=== PATIENT | female | born 1940 | race Two or more races ===

== ENCOUNTER 2018-08-24 09:49 | Emergency (ER) | payer MEDICARE ==
[~2018-08-24] VITALS: Ht 154.9 cm; Wt 71.2 kg
[~2018-08-24 09:49] MED LIST: ALBIPROI INH; ALBU90I INH; ALBU90OI INH; ALBU90OI61 INH; ALLO100 PO; ASPI325; ASPI81CH PO; ASPI81EC PO; ATOR10; ATOR20 PO; AZIT250 PO; AZIT500 PO; Bactrim Ds Tab1 EACH PO; CALC.25 PO; CEFU250 PO; CEPH500 PO; CIPR250 PO; CLIN150 PO; CONEST.9; CONEST.9 PO; CRUTCH3 USE; Cipro500 MG PO; DOXY100 PO; DULO60 PO; ENABLEX PO; ESTRTP PV; FURO40; FURO40 PO; Flonase 0.05% N16 GM; GLIM2; GLIM2 PO; GLIM4 PO; Glipizide ER2.5 MG; HYDACE5 PO; HYDGUAL120 PO; IBUP200; LIRA0.6P; MULT50L; Macrobid 100 M100 MG PO; Monodox100 MG PO; NEOPOLHCSU OT; Norco 5-325 Ta1 EACH PO; OMEP20ER; OMEP20ER PO; OMEP40CA12 PO; ONDA4 PO; PANT40; PARO20; PHENA100 PO; PHENA200 PO; POTA10T PO; POTCHL10ER; POTCHL10ER PO; PRED20 PO; Percocet 5-3251 EACH PO; Pyridium100 MG PO; Pyridium200 MG PO; RAMI5; RAMI5 PO; RANI150 PO; ROSI4; ROSI4 PO; SITA100T2 PO; SITA25T2 PO; SOLI5 PO; SULTRIDS PO; TRAM50; TRAM50 PO; VITAMIN B122500 MCG PO; Zofran Odt4 MG SL
[2018-08-24] MEDS ORDERED: TEST STRIPS1 EACH XX (12:16)
[2018-08-24] MEDS ORDERED: Keflex500 MG PO (12:16)
[2018-08-24] MEDS ORDERED: Bactrim Ds Tab1 EACH PO (12:16)
[2018-08-24] MEDS ORDERED: Norco 5-325 Ta1 EACH PO (12:16)
== END 2018-08-24 12:25 | disposition home or self-care (01) ==
LOC: ER 09:49
DX: L03.114 Cellulitis of left upper limb (principal); Z88.0 Allergy status to penicillin; Z88.8 Allergy status to other drugs, medicaments and biological substances; Z79.899 Other long term (current) drug therapy; Z79.82 Long term (current) use of aspirin; E11.22 Type 2 diabetes mellitus with diabetic chronic kidney disease; N18.9 Chronic kidney disease, unspecified; K21.9 Gastro-esophageal reflux disease without esophagitis
CPT/HCPCS: 99283

== ENCOUNTER 2018-08-28 10:19 | Emergency (ER) | payer MEDICARE ==
[~2018-08-28] VITALS: Ht 154.9 cm; Wt 71.2 kg
[~2018-08-28 10:19] MED LIST changes: +Keflex500 MG PO; +TEST STRIPS1 EACH XX
[2018-08-28 11:01] LABS: BASOPHILS ABSOLUTE AUTO 0.03 K/mm3 (0.00-0.23); BASOPHILS PERCENT AUTO 1 % (0-2); EOSINOPHILS ABSOLUTE AUTO 0.11 K/mm3 (0.00-0.68); EOSINOPHILS PERCENT AUTO 2 % (0-6); Hematocrit 40.4 % (33.0-51.0); Hemoglobin 12.8 g/dL (11.5-16.0); IMMATURE GRAN ABSOLUTE AUTO 0.01 K/mm3 (0.00-0.10); IMMATURE GRAN PERCENT AUTO 0 % (0-1); LYMPHOCYTES ABSOLUTE AUTO 1.66 K/mm3 (0.84-5.20); LYMPHOCYTES PERCENT AUTO 30 % (21-46); MONOCYTES ABSOLUTE AUTO 0.34 K/mm3 (0.16-1.47); MONOCYTES PERCENT AUTO 6 % (4-13); Mean Corpuscular HGB 30.1 pg (26.0-34.0); Mean Corpuscular HGB Conc 31.7 g/dL (31.5-36.5); Mean Corpuscular Volume 95 fL (80-100); Mean Platelet Volume 11.5 fL (9.1-12.4); NEUTROPHILS ABSOLUTE AUTO 3.41 K/mm3 (1.96-9.15); NEUTROPHILS PERCENT AUTO 61 % (41-73); Platelet Count 159 K/mm3 (150-400); RDW Coefficient Variation 13.2 % (11.7-14.2); RDW Standard Deviation 46.5 fL (35.1-46.3); Red Blood Cell Count 4.25 M/mm3 (3.80-5.20); White Blood Cell Count 5.56 K/mm3 (4.00-11.30)
[2018-08-28 11:18] LABS: Albumin, Blood 3.6 g/dL (3.4-5.0); Albumin/Globulin Ratio 0.8 (0.8-1.8); Bilirubin, Total 0.6 mg/dL (0.1-1.0); Calcium, Blood 9.5 mg/dL (8.5-10.1); Creatinine, Blood 1.63 mg/dL (0.40-1.00); Globulin, Blood 4.3 g/dL (2.2-4.0); Potassium, Blood 4.6 mmol/L (3.5-5.5); Total Protein, Blood 7.9 g/dL (6.4-8.2)
== END 2018-08-28 12:43 | disposition home or self-care (01) ==
LOC: ER 10:19
PROVIDERS: Physician Assistant
DX: L02.512 Cutaneous abscess of left hand (principal); Z88.0 Allergy status to penicillin; Z88.8 Allergy status to other drugs, medicaments and biological substances; Z79.899 Other long term (current) drug therapy; Z79.82 Long term (current) use of aspirin; E11.22 Type 2 diabetes mellitus with diabetic chronic kidney disease; N18.9 Chronic kidney disease, unspecified; K21.9 Gastro-esophageal reflux disease without esophagitis
CPT/HCPCS: 10060; 36415; 80053; 85025; 96365-59; 99283-25; J0690

== ENCOUNTER → 2018-12-25 | Outpatient (CLI) | payer MEDICARE | END | disposition home or self-care (01) | LOC: LAB EV 14:50 → LAB SHORT 14:50 | DX: R30.9 Painful micturition, unspecified (principal) | CPT/HCPCS: 87077; 87086; 87186 ==

== ENCOUNTER 2019-02-25 05:59 | Emergency (ER) | payer MEDICARE ==
[~2019-02-25] VITALS: Ht 154.9 cm; Wt 77.1 kg
[2019-02-25] MEDS ORDERED: TRAM50 PO (06:19)
[2019-02-25] MEDS ORDERED: RAMI5 PO (06:20)
[2019-02-25] MEDS ORDERED: PROBIOTIC ACID1 EAC2 PO (06:22)
[2019-02-25] MEDS ORDERED: CENTRUM ADULTS1 EACH PO (06:28)
[2019-02-25] MEDS ORDERED: VITAMIN D32000 UNI3 PO (06:28)
[2019-02-25] MEDS ORDERED: Prednisone20 MG PO (08:14)
[2019-02-25] MEDS ORDERED: GUAIFEN-CODEINE10 ML PO (08:14)
[2019-02-25] MEDS ORDERED: ALBU90OI INH (08:14)
== END 2019-02-25 08:30 | disposition home or self-care (01) ==
LOC: ER 05:59
DX: J06.9 Acute upper respiratory infection, unspecified (principal); E11.22 Type 2 diabetes mellitus with diabetic chronic kidney disease; N18.9 Chronic kidney disease, unspecified; K21.9 Gastro-esophageal reflux disease without esophagitis; Z88.6 Allergy status to analgesic agent; Z88.0 Allergy status to penicillin; Z79.899 Other long term (current) drug therapy
CPT/HCPCS: 71046; 94644; 99283-25; J1100

== ENCOUNTER → 2019-07-04 | Outpatient (CLI) | payer MEDICARE ==
[~2019-07-04] MED LIST changes: +CENTRUM ADULTS1 EACH PO; +GUAIFEN-CODEINE10 ML PO; +PROBIOTIC ACID1 EAC2 PO; +Prednisone20 MG PO; +VITAMIN D32000 UNI3 PO
== END | disposition home or self-care (01) ==
LOC: LAB EV 14:55 → LAB SHORT 14:55
DX: R30.9 Painful micturition, unspecified (principal)
CPT/HCPCS: 87086

== ENCOUNTER → 2019-07-23 | Outpatient (CLI) | payer MEDICARE | END | disposition home or self-care (01) | LOC: LAB SHORT 11:35 → LAB EV 11:35 | DX: N39.0 Urinary tract infection, site not specified (principal) | CPT/HCPCS: 87086 ==

== ENCOUNTER → 2021-07-20 | Outpatient (CLI) | payer MEDICARE ==
[2021-07-20 12:10] LABS: Source, Urine Clean Catch
[2021-07-20 13:22] LABS: Appearance, Urine Clear (Clear); Bilirubin, Urine Neg (Neg); Blood, Urine Neg (Neg); Color, Urine Yellow (P-Yellow); Glucose Qualitative, Urine 3+ (Neg); Ketones, Urine Neg (Neg); Leukocyte Esterase, Urine Neg (Neg); Nitrite, Urine Neg (Neg); Protein, Urine Neg (Neg); Specific Gravity, Urine 1.015 (1.003-1.022); Urobilinogen, Urine NORM (Normal)
[2021-07-20 15:28] LABS: Creatinine, Urine Random 79.2 mg/dL (27.00-270.00); Protein, Urine Random 12.3 mg/dL (0.0-11.9); Protein/Creat Ratio, Ur Random 0.2
== END ==
LOC: LAB SHORT 09:50 → LAB 09:50
PROVIDERS: Nurse Practitioner Family
DX: N18.32 Chronic kidney disease, stage 3b (principal)
CPT/HCPCS: 81003; 82570; 84156

== ENCOUNTER → 2022-04-14 | Outpatient (CLI) | payer MEDICARE ==
[2022-04-15 14:50] LABS: Creatinine, Urine Random 62.5 mg/dL (27.00-270.00)
[2022-04-15 14:53] LABS: Microalb/Creat Ratio UR, Rand 9.232 mg/g (0.000-30.000); Microalbumin, Random Urine 5.77 mg/L (0.000-20.000)
== END | disposition home or self-care (01) ==
LOC: LAB SHORT 07:52
PROVIDERS: Family Medicine
DX: E11.9 Type 2 diabetes mellitus without complications (principal)
CPT/HCPCS: 82043; 82570

== ENCOUNTER → 2022-06-14 | Outpatient (CLI) | payer MEDICARE | END | disposition home or self-care (01) | LOC: LAB SHORT 16:23 → LAB 16:23 | DX: N39.0 Urinary tract infection, site not specified (principal) | CPT/HCPCS: 87086 ==

== ENCOUNTER → 2023-01-10 | Outpatient (CLI) | payer MEDICARE | LOC: LAB SHORT 11:11 → LAB 11:11 | DX: E11.9 Type 2 diabetes mellitus without complications (principal) | CPT/HCPCS: 82043 ==

== ENCOUNTER → 2024-04-11 | Outpatient (CLI) | payer MEDICARE ==
[2024-04-11 16:37] LABS: BASOPHILS ABSOLUTE AUTO 0.06 K/mm3 (0.00-0.23); BASOPHILS PERCENT AUTO 0 % (0-2); EOSINOPHILS PERCENT AUTO 1 % (0-6); Hemoglobin 10.8 g/dL (11.5-16.0); IMMATURE GRAN ABSOLUTE AUTO 0.12 K/mm3 (0.00-0.10); IMMATURE GRAN PERCENT AUTO 1 % (0-1); LYMPHOCYTES ABSOLUTE AUTO 2.55 K/mm3 (0.84-5.20); LYMPHOCYTES PERCENT AUTO 19 % (21-46); MONOCYTES ABSOLUTE AUTO 0.89 K/mm3 (0.16-1.47); MONOCYTES PERCENT AUTO 7 % (4-13); Mean Corpuscular HGB 30.8 pg (26.0-34.0); Mean Corpuscular HGB Conc 31.8 g/dL (31.5-36.5); Mean Corpuscular Volume 97 fL (80-100); Mean Platelet Volume 9.9 fL (9.1-12.4); NEUTROPHILS ABSOLUTE AUTO 9.82 K/mm3 (1.96-9.15); NEUTROPHILS PERCENT AUTO 73 % (41-73); Platelet Count 540 K/mm3 (150-400); RDW Coefficient Variation 14.9 % (11.7-14.2); Red Blood Cell Count 3.51 M/mm3 (3.80-5.20); White Blood Cell Count 13.54 K/mm3 (4.00-11.30)
[2024-04-12 02:35] LABS: Percent Saturation 18.8 % (15.0-50.0)
== END ==
LOC: LAB SHORT 14:53 → LAB 14:53
PROVIDERS: Family Medicine
DX: D64.9 Anemia, unspecified (principal)
CPT/HCPCS: 82728; 83540; 83550; 85025

== ENCOUNTER 2024-10-03 12:09 | Day surgery (SDC) | payer MEDICARE ==
[~2024-10-03] VITALS: Ht 154.9 cm; Wt 81.6 kg
[2024-10-03] MEDS ORDERED: MYRBETRIQ50 MG (13:54)
[2024-10-03] MEDS ORDERED: GABA100 (13:55)
[2024-10-03] MEDS ORDERED: JARDIANCE25 MG (13:58)
[2024-10-03] MEDS ORDERED: BASAGLAR K100 UNIT/1 (13:58)
[2024-10-03 15:49] VITALS: BP 149/85
== END 2024-10-03 16:07 | disposition home or self-care (01) ==
LOC: ORSCSDS 12:09
PROVIDERS: Internal Medicine Gastroenterology
PROC: 0DB68ZX Excision of Stomach, Via Natural or Artificial Opening Endoscopic, Diagnostic (ICD-10-PCS; principal; 2024-10-03 13:45)
PROC: 0D757ZZ Dilation of Esophagus, Via Natural or Artificial Opening (ICD-10-PCS; principal; 2024-10-03 13:45)
PROC: 0DB58ZX Excision of Esophagus, Via Natural or Artificial Opening Endoscopic, Diagnostic (ICD-10-PCS; principal; 2024-10-03 13:45)
DX: R13.10 Dysphagia, unspecified (principal); K44.9 Diaphragmatic hernia without obstruction or gangrene; E78.5 Hyperlipidemia, unspecified; I12.9 Hypertensive chronic kidney disease with stage 1 through stage 4 chronic kidney disease, or unspecified chronic kidney disease; E11.22 Type 2 diabetes mellitus with diabetic chronic kidney disease; N18.32 Chronic kidney disease, stage 3b; K21.9 Gastro-esophageal reflux disease without esophagitis; N25.81 Secondary hyperparathyroidism of renal origin; R80.9 Proteinuria, unspecified; Z79.4 Long term (current) use of insulin; Z79.899 Other long term (current) drug therapy
CPT/HCPCS: 82947; 88305; 88342; J2704; J7120